=== PATIENT | male | born 1955 | race Caucasian/White ===

== ENCOUNTER 2020-01-07 23:51 | Inpatient (IN) | payer SELFPAY ==
--- NOTE | 2020-01-08 00:13 | ER Document Report ---
ED General - General Chief Complaint: Dizziness Stated Complaint: DIZZINESS Time Seen by Provider: 01/08/20 00:00 Notes: Patient is a 64-year-old male that comes to the emergency department for chief complaint of lightheadedness, feeling unsteady, and he states his checked his blood pressure at home and she told him it was elevated and she told him to come the emergency department. He comes by EMS. He denies headache, chest pain, shortness of breath, fever, although he does admit that he vomited twice earlier today. Admits to daily alcohol including today, he admits to alcohol dependence. He also admits to tobacco abuse. He denies recreational drugs, he denies any diagnosed medical history. He states that he took his 's nitroglycerin at home prior to arrival for his blood pressure but he specifically denies that he had chest pain. Patient does not have a primary care provider and has not been seen by one for a long time reportedly. - Related Data Allergies/Adverse Reactions: No Known Allergies Allergy (Unverified 01/08/20 03:26) Past Medical History - General Information source: Patient - Social History Smoking Status: Current Every Day Smoker Frequency of alcohol use: Heavy Drug Abuse: None Lives with: Spouse/Significant other Family History: Reviewed & Not Pertinent - Medical History Medical History: Negative - Immunizations Hx Diphtheria, Pertussis, Tetanus Vaccination: Yes Review of Systems - Review of Systems Constitutional: No symptoms reported EENT: No symptoms reported Cardiovascular: No symptoms reported Respiratory: No symptoms reported Gastrointestinal: No symptoms reported Genitourinary: No symptoms reported Male Genitourinary: No symptoms reported Musculoskeletal: No symptoms reported Skin: No symptoms reported Hematologic/Lymphatic: No symptoms reported Neurological/Psychological: See HPI Physical Exam - Vital signs Vitals: Temp Pulse Resp BP Pulse Ox 97.8 F 84 18 169/81 H 97 01/07/20 23:55 01/07/20 23:55 01/07/20 23:55 01/07/20 23:55 01/07/20 23:55 - Notes Notes: GENERAL: Alert, interactive, cooperative. Disheveled in appearance HEAD: Normocephalic, atraumatic. EYES: Pupils equal, round, and reactive to light. Extraocular movements intact. ENT: Oral mucosa moist, tongue midline. Oropharynx unremarkable. Airway patent. NECK: Full range of motion. Supple. Trachea midline. No lymphadenopathy. LUNGS: Clear to auscultation bilaterally, no wheezes, rales, or rhonchi. No respiratory distress. Non-tender chest wall. HEART: Regular rate and rhythm. No murmur ABDOMEN: Soft, non-tender. Non-distended. EXTREMITIES: Moves all 4 extremities spontaneously. No edema, normal radial and dorsalis pedis pulses bilaterally. No cyanosis. BACK: no cervical, thoracic, lumbar midline tenderness. No saddle anesthesia, normal distal neurovascular exam. Moves all extremities in full range of motion. NEUROLOGICAL: Alert and oriented to place, not completely oriented to events, repeats same questions multiple times normal speech. Slightly tremulous. Cranial nerves II through XII grossly intact. Strength 5/5 in all extremities. PSYCH: Normal affect, normal mood. SKIN: Warm, dry, normal turgor. No rashes or lesions noted. Course - Re-evaluation Re-evalutation: Patient is somewhat sluggish in his responses, he asks the same question multiple times, he is unsteady on his feet. Examination unremarkable otherwise except patient appears somewhat disheveled. Patient is hypertensive but his vital signs are unremarkable otherwise. CT of the head performed, no overt acute abnormality. CBC nonspecific, chemistry shows marked hyponatremia at 100.9, nonspecific otherwise. Troponin unremarkable. EKG shows probable J-point elevation. Chest x-ray unremarkable. Patient has been placed on seizure precautions, started slow sodium replacement with normal saline at 125 mL's per hour, discussed with both patient and , they state agreement with admission. Discussed with Dr. Harmon, recommends ICU admission. Discussed with Navneet Lemus PA-C consultant nurse for ICU admissions, evaluated the patient, patient accepted to ICU admission. - Vital Signs Vital signs: Temp Pulse Resp BP Pulse Ox 98.3 F 93 20 145/64 H 95 01/08/20 04:11 01/08/20 04:11 01/08/20 04:11 01/08/20 04:11 01/08/20 04:11 - Laboratory Result Diagrams: 01/08/20 04:40 01/08/20 04:40 Laboratory results interpreted by me: 01/08/20 01/08/20 00:24 02:09 WBC 13.5 H Seg Neuts % (Manual) 86 H Band Neutrophils % 1 L Lymphocytes % (Manual) 6 L Abs Neuts (Manual) 0.0 L Abs Lymphs (Manual) 0.0 L Abs Monocytes (Manual) 0.0 L Sodium 100.9 L* Chloride 66 L BUN 5 L Glucose 126 H Total Bilirubin 1.5 H - EKG Interpretation by Me Additional EKG results interpreted by me: EKG shows sinus rhythm at a rate of 87, QTc 457, normal axis, no T wave inversions in consecutive leads, there is what appears to be J-point elevation in V2 and V3. Otherwise unremarkable. Critical Care Note - Critical Care Note Total time excluding time spent on procedures (mins): 35 - Confusion, marked hyponatremia Comments: Please allow 35 minutes of critical care time for evaluation and management of patient with confusion, hypertension, marked hyponatremia. Interventions including multiple evaluations, treatment with slow sodium replacement, time spent discussing with patient, time spent discussing with patient's , time spent consulting and admitting to the ICU. Discharge - Discharge Clinical Impression: Hyponatremia, Unsteady gait, Confusion, Alcohol abuse Condition: Serious Disposition: ADMITTED INPATIENT Admitting Provider: Farooq (Sustainability Project Manager) Unit Admitted: ICU
[2020-01-08 00:53] LABS: ALBUMIN 4.3 g/dL (3.5-5.0); ALKALINE PHOSPHATASE 85 U/L (38-126); ANION GAP 13 (5-19); ASPARTATE AMINO TRANSFERASE 56 U/L (17-59); BILIRUBIN,DIRECT 0.3 mg/dL (0.0-0.4); BILIRUBIN,TOTAL 1.5 mg/dL (0.2-1.3); BLOOD UREA NITROGEN 5 mg/dL (7-20); CALCIUM 8.9 mg/dL (8.4-10.2); CARBON DIOXIDE 22 mmol/L (22-30); CHLORIDE 66 mmol/L (98-107); GLUCOSE 126 mg/dL (75-110); POTASSIUM 4.2 mmol/L (3.6-5.0); TOTAL PROTEIN 6.5 g/dL (6.3-8.2)
--- NOTE | 2020-01-08 01:08 | RADIOLOGY REPORT (SQ) ---
EXAM DESCRIPTION: CT HEAD WITHOUT IV CONTRAST COMPLETED DATE/TME: 01/08/2020 00:06 CLINICAL INDICATION: 64-year-old male with vomiting and questionable head injury. COMPARISON: 01/08/2020. TECHNIQUE: CT brain without contrast. This exam was performed according to our departmental dose optimization program which includes use of automated exposure control, adjustment of the mA and/or kV according to patient size and/or use of iterative reconstruction technique. FINDINGS: Examination findings are significantly limited by motion artifact, particularly at the level of the basal ganglia and bilateral ventricles. The possibility of trace hemorrhage or infarct cannot be excluded. The ventricles are mildly prominent, a finding which may reflect mild underlying volume loss. The sulci appear to be within normal limits. The chavarria-white matter differentiation is preserved. There is no mass effect, midline shift, intra- or extra-axial fluid collection/acute hemorrhage. The osseous structures are unremarkable. The paranasal sinuses and mastoid air cells are clear. IMPRESSION: 1. No gross acute intracranial abnormalities, however limited by motion artifact. Short-term interval follow-up evaluation may be considered when the patient is clinically able.
--- NOTE | 2020-01-08 01:21 | RADIOLOGY REPORT (SQ) ---
CLINICAL INDICATION: weakness. TECHNIQUE: A single portable AP view was obtained of the chest at 0039 hours. COMPARISON: None. FINDINGS: The cardiomediastinal silhouette is normal. The lungs are grossly clear. No evidence of effusion or pneumothorax. Chronic parenchymal lung change. Left lateral hemithorax incompletely imaged. IMPRESSION: No evidence of active intrathoracic disease.
[2020-01-08] MEDS ORDERED: NORMAL SALINE 1000 ML 1,000 ML IV PRN (01:24)
[2020-01-08 02:44] LABS: BAND NEUTROPHILS % (MANUAL) 1 % (3-5); BASOPHILS % (MANUAL) 0 % (0-2); EOSINOPHILS % (MANUAL) 0 % (0-6); LYMPHOCYTES % (MANUAL) 6 % (13-45); MONOCYTES % (MANUAL) 7 % (3-13); SEGMENTED NEUTROPHILS % (MAN) 86 % (42-78); TOTAL CELLS COUNTED 100
[2020-01-08 02:45] LABS: PLATELET COMMENT ADEQUATE
[2020-01-08 02:48] LABS: HEMOGLOBIN 16.4 g/dL (13.5-17.0); SCHISTOCYTES SLIGHT; WHITE BLOOD COUNT 13.5 10^3/uL (4.0-10.5)
[2020-01-08 03:02] LABS: PLATELET COUNT 189 10^3/uL (150-450)
[2020-01-08] MEDS ORDERED: HEPARIN SOD (PORCINE) 5,000 UNIT/ML 1 ML VIAL SUBCUT ONE (04:15)
[2020-01-08 04:47] LABS: HEMATOCRIT 44.3 % (37.9-51.0); MEAN CORPUSCULAR HGB CONC 36.1 g/dL (32.0-36.0); MEAN CORPUSCULAR VOLUME 94 fl (80-97); PLATELET COUNT 193 10^3/uL (150-450); RED BLOOD COUNT 4.71 10^6/uL (4.35-5.55); RED CELL DISTRIBUTION WIDTH 12.8 % (11.5-14.0); WHITE BLOOD COUNT 13.1 10^3/uL (4.0-10.5)
--- NOTE | 2020-01-08 04:49 | CRITICAL CARE ADMISSION REPORT ---
HPI Date:: 01/08/20 Time:: 04:35 Reason for ICU Reason:: Severe Hyponatremia with mental status changes Admission Date/Time & PCP: Admission Date/Time: 01/08/20 03:03 Primary Care Provider: EULA CAO MD HPI: 64-year-old gentleman with a history of alcohol abuse. Patient presented to the emergency room today feeling lightheaded with an elevated blood pressure taken at home. Upon arrival, the patient was found to have a sodium level of 100.9. CT was negative for any acute cerebral changes. He is being treated with normal saline at 125 mL/h. Upon evaluation, patient remains confused. He is being ad mitted to the intensive care unit for mental status changes in the presence of severe hyponatremia. History obtained from:: Patient, Emergency room Physician - Diagnosis/Plan (1) Alcohol abuse Is this a current diagnosis for this admission?: Yes Plan: Patient's last drink was earlier today. He is at risk of alcohol withdrawal syndrome while being treated for his hyponatremia. We will monitor closely for withdrawal symptoms and seizure-like activity. (2) Hyponatremia Is this a current diagnosis for this admission?: Yes Plan: Patient with no apparent seizure activity. CT scan of head is negative. Continue normal saline and follow-up sodium level. If level is beginning to improve, we will continue current treatment of normal saline. If no change in sodium level, we will consider starting hypertonic saline and recheck sodium levels regularly to avoid too rapid of a correction. Plan Summary: Overall, patient is in stable condition, however, is extremely low sodium levels put him at very high risk. If the patient's mental status improves and his sodium levels improve over the next 24 hours. He would be appropriate for transfer to the [facility] for further observation. If no change in his sodium levels this morning, we will start hypertonic saline with close sodium level monitorin g. Past Medical History Past Medical History: Patient is a poor historian and is unable to provide a an appropriate medical history at this time. Social/Family History - Social History Smoking Status: Current Every Day Smoker Frequency of Alcohol Use: Heavy Last Alcohol Use: 01/07/20 - Medication/Allergies Allergies/Adverse Reactions: No Known Allergies Allergy (Unverified 01/08/20 03:26) Review of Systems ROS unobtainable: Other - Patient's mental status seems to be somewhat altered although he does have some periods of lucency. He is unable to provide a complete review of systems, however he does state that he has no complaints. Physical Exam Vital Signs: Temp Pulse Resp BP Pulse Ox 98.1 F 84 24 H 194/93 H 97 01/08/20 03:24 01/07/20 23:55 01/08/20 03:01 01/08/20 03:01 01/08/20 03:01 Intake & Output 01/06/20 01/07/20 01/08/20 06:59 06:59 06:59 Weight 70.307 kg Weight/Height Weight 70.307 kg Height 5 ft 10 in General appearance: PRESENT: no acute distress, cooperative Head exam: PRESENT: atraumatic, normocephalic Eye exam: PRESENT: conjunctival injection, EOMI, PERRLA Ear exam: PRESENT: normal external ear exam Mouth exam: PRESENT: dry mucosa, neck supple Neck exam: PRESENT: full ROM. ABSENT: JVD, lymphadenopathy Respiratory exam: PRESENT: clear to auscultation jose l. ABSENT: accessory muscle use, rales, rhonchi, wheezes Cardiovascular exam: PRESENT: RRR, +S2 Pulses: PRESENT: normal carotid pulses GI/Abdominal exam: PRESENT: normal bowel sounds, soft. ABSENT: ascites, distended Neurological exam: PRESENT: oriented to person, oriented to place, oriented to time, oriented to situation, CN II-XII grossly intact Skin exam: PRESENT: normal color, other. ABSENT: skin tears Laboratory/Radiographs Laboratory Results: 01/08/20 02:09 01/08/20 00:24 01/08/20 01/08/20 01/08/20 00:24 00:24 02:09 WBC Cancelled 13.5 H RBC Cancelled Hgb Cancelled 16.4 Hct Cancelled MCV Cancelled MCH Cancelled MCHC Cancelled RDW Cancelled Plt Count Cancelled 189 Seg Neutrophils % Cancelled Not Reportable Sodium 100.9 L* Potassium 4.2 Chloride 66 L Carbon Dioxide 22 Anion Gap 13 BUN 5 L Creatinine 0.55 Est GFR ( Amer) > 60 Glucose 126 H Calcium 8.9 Total Bilirubin 1.5 H AST 56 Alkaline Phosphatase 85 Total Protein 6.5 Albumin 4.3 Lipase 60.5 01/08/20 00:24 Troponin I < 0.012 Impressions: Head CT 01/08/20 00:06 IMPRESSION: 1. No gross acute intracranial abnormalities, however limited by motion artifact. Short-term interval follow-up evaluation may be considered when the patient is clinically able. Chest X-Ray 01/08/20 00:07 IMPRESSION: No evidence of active intrathoracic disease. All labs, radiographs, diagnostic studies and EKGs were personally reviewed: Yes In addition, reports of radiographic and diagnostic studies were read: Yes Critical Time Critical Time (minutes): 70 -: The care of a critically ill patient is dynamic. This note represents a static moment in the admission process. Orders and treatments may be given simultaneously and urgently, and time is not territory representative of the treatment process. This patient requires Critical Care secondary to life threatening organ or limb dysfunction. Without Critical Care services, the patient is at risk for increased mortality and morbidity.
[2020-01-08 06:05] LABS: BLOOD UREA NITROGEN 7 mg/dL (7-20); CALCIUM 8.8 mg/dL (8.4-10.2); CARBON DIOXIDE 19 mmol/L (22-30); CHLORIDE 68 mmol/L (98-107); GLUCOSE 105 mg/dL (75-110); POTASSIUM 4.8 mmol/L (3.6-5.0)
[2020-01-08 06:07] LABS: ANION GAP 13 (5-19)
[2020-01-08] MEDS ORDERED: NICOTINE 21 MG/24 HR PATCH.TD24 TD ONE (06:15)
[2020-01-08] MEDS ORDERED: SODIUM CHLORIDE 3% 1,000 ML IV ONE (06:20)
[2020-01-08] MEDS ORDERED: SODIUM CHLORIDE 3% 500 ML IV ONE ×2 (06:24→21:45)
[2020-01-08] MEDS ORDERED: PHENOBARBITAL INJ 65 MG/ML VIAL IV ONE ×3 (07:30→11:45)
[2020-01-08] MEDS ORDERED: NORMAL SALINE IV ONE (08:00)
[2020-01-08] MEDS ORDERED: PHENOBARBITAL SODIUM IV ONE (08:00)
[2020-01-08] MEDS ORDERED: PHENOBARBITAL INJ 65 MG/ML VIAL IV PRN ×2 (08:07→10:00)
--- NOTE | 2020-01-08 09:10 | EKG REPORT ---
SEVERITY:- ABNORMAL ECG - SINUS RHYTHM BIATRIAL ABNORMALITIES MINIMAL ST ELEVATION, ANTERIOR LEADS : Confirmed by: Ivone Wong MD 08-Jan-2020 09:09:37
[2020-01-08 09:43] LABS: APPEARANCE,URINE CLEAR; BILIRUBIN,URINE NEGATIVE (NEGATIVE); COLOR,URINE YELLOW; GLUCOSE, URINE NEGATIVE (NEGATIVE); KETONES,URINE 20 mg/dL (NEGATIVE); LEUKOCYTE ESTERASE,URINE NEGATIVE (NEGATIVE); NITRITE,URINE NEGATIVE (NEGATIVE); PROTEIN,URINE NEGATIVE (NEGATIVE); URINE SPECIFIC GRAVITY 1.005
[2020-01-08] MEDS: FAMOTIDINE INJ/PF 20 MG/2 ML SDV IV SCH ×2 (10:47→22:04)
[2020-01-08] MEDS: MAGNESIUM SULFATE/D5W 1 GM/100 ML RTUPB IV SCH ×3 (10:47→13:05)
[2020-01-08] MEDS: PHENOBARBITAL INJ 65 MG/ML VIAL IV PRN ×3 (10:48→19:00)
[2020-01-08] MEDS: HEPARIN SOD (PORCINE) 5,000 UNIT/ML 1 ML VIAL SUBCUT SCH ×2 (13:35→22:03)
[2020-01-08 14:29] LABS: POTASSIUM 3.8 mmol/L (3.6-5.0)
[2020-01-08] MEDS ORDERED: PHENOBARBITAL INJ 65 MG/ML VIAL IV SCH (18:00)
[2020-01-08 21:22] LABS: POTASSIUM 4.6 mmol/L (3.6-5.0)
[2020-01-09 04:21] LABS: BLOOD UREA NITROGEN 8 mg/dL (7-20); CARBON DIOXIDE 23 mmol/L (22-30); CHLORIDE 87 mmol/L (98-107); GLUCOSE 80 mg/dL (75-110); POTASSIUM 4.3 mmol/L (3.6-5.0)
[2020-01-09 04:23] LABS: ANION GAP 9 (5-19)
[2020-01-09 04:36] LABS: HEMATOCRIT 48.8 % (37.9-51.0); HEMOGLOBIN 17.5 g/dL (13.5-17.0); MEAN CORPUSCULAR HEMOGLOBIN 34.2 pg (27.0-33.4); MEAN CORPUSCULAR HGB CONC 35.8 g/dL (32.0-36.0); MEAN CORPUSCULAR VOLUME 96 fl (80-97); PLATELET COUNT 162 10^3/uL (150-450); RED BLOOD COUNT 5.11 10^6/uL (4.35-5.55); RED CELL DISTRIBUTION WIDTH 13.1 % (11.5-14.0); WHITE BLOOD COUNT 7.2 10^3/uL (4.0-10.5)
[2020-01-09 05:11] LABS: PREALBUMIN 23.3 mg/dL (17.6-36.0)
[2020-01-09] MEDS: HEPARIN SOD (PORCINE) 5,000 UNIT/ML 1 ML VIAL SUBCUT SCH ×3 (05:24→21:48)
[2020-01-09] MEDS: FAMOTIDINE INJ/PF 20 MG/2 ML SDV IV SCH ×2 (09:00→21:48)
[2020-01-09] MEDS: NICOTINE 21 MG/24 HR PATCH.TD24 TD SCH (09:21)
[2020-01-09 10:22] LABS: POTASSIUM 5.2 mmol/L (3.6-5.0)
--- NOTE | 2020-01-09 10:26 | RADIOLOGY REPORT (SQ) ---
EXAM DESCRIPTION: CHEST SINGLE VIEW IMAGES COMPLETED DATE/TIME: 01/09/2020 5:38 am REASON FOR STUDY: cough COMPARISON: 01/08/2020 NUMBER OF VIEWS: One view. TECHNIQUE: Single frontal radiographic view of the chest acquired. LIMITATIONS: None. FINDINGS: LUNGS AND PLEURA: No opacities, masses or pneumothorax. No pleural effusion. Attenuated bl ood vessels and flattened ru-diaphragms. MEDIASTINUM AND HILAR STRUCTURES: No masses. Contour normal. HEART AND VASCULAR STRUCTURES: Heart normal in size. Normal vasculature. BONES: No acute findings. HARDWARE: None in the chest. OTHER: No other significant finding. IMPRESSION: COPD. NO ACUTE RADIOGRAPHIC FINDING IN THE CHEST. TECHNICAL DOCUMENTATION: JOB ID: [id number] 2010 [email or web address]- All Rights Reserved Reading location - IP/workstation name: [email or web address]
[2020-01-09] MEDS ORDERED: ACETAMINOPHEN 325 MG TABLET PO PRN (13:25)
[2020-01-09 17:10] LABS: ANION GAP 8 (5-19); BLOOD UREA NITROGEN 17 mg/dL (7-20); CALCIUM 9.3 mg/dL (8.4-10.2); CARBON DIOXIDE 19 mmol/L (22-30); CHLORIDE 94 mmol/L (98-107); GLUCOSE 72 mg/dL (75-110); POTASSIUM 4.9 mmol/L (3.6-5.0)
[2020-01-09 23:06] LABS: POTASSIUM 4.2 mmol/L (3.6-5.0)
[2020-01-09] MEDS ORDERED: SODIUM CHLORIDE 3% 500 ML IV ONE ×2 (23:34)
[2020-01-10 03:21] LABS: ANION GAP 7 (5-19); BLOOD UREA NITROGEN 13 mg/dL (7-20); CALCIUM 8.7 mg/dL (8.4-10.2); CARBON DIOXIDE 21 mmol/L (22-30); CHLORIDE 92 mmol/L (98-107); GLUCOSE 89 mg/dL (75-110); POTASSIUM 4.1 mmol/L (3.6-5.0)
[2020-01-10] MEDS: HEPARIN SOD (PORCINE) 5,000 UNIT/ML 1 ML VIAL SUBCUT SCH ×3 (05:49→22:34)
[2020-01-10] MEDS: FAMOTIDINE INJ/PF 20 MG/2 ML SDV IV SCH ×2 (09:41→22:34)
[2020-01-10] MEDS: NICOTINE 21 MG/24 HR PATCH.TD24 TD SCH (09:41)
[2020-01-10 10:39] LABS: POTASSIUM 4.4 mmol/L (3.6-5.0)
[2020-01-10] MEDS: IPRATROPIUM/ALBUTEROL 0.5-2.5 MG/3 ML AMPUL NEB PRN ×2 (16:01→22:06)
[2020-01-10] MEDS ORDERED: MORPHINE SULFATE 10 MG/ML INJ IV ONE (17:16)
--- NOTE | 2020-01-10 17:23 | PDOC CRITICAL CARE PROG REPORT ---
General Date:: 01/10/20 ICU Day:: 2 Hospital Day:: 2 Resuscitation Status: Full Code Events in the past 12 to 24 Hours:: Neurologically intact Review of systems relevant to events:: Neurological Reason for ICU Addmission:: Severe Hyponatremia with mental status changes, improved. - Medications: Medications reviewed and adjusted accordingly: Yes Vasopressors:: None Sedation:: None Physical Exam Vital Signs: Temp Pulse Resp BP Pulse Ox 98.0 F 109 H 24 H 158/76 H 97 01/10/20 12:00 01/10/20 16:01 01/10/20 16:01 01/10/20 14:00 01/10/20 16:01 Intake & Output 01/09/20 01/10/20 01/11/20 06:59 06:59 06:59 Intake Total 1300 720 Output Total 2960 440 125 Balance -1660 280 -125 Weight 68.1 kg 71.3 kg Weight/Height Weight 71.3 kg Height 5 ft 10 in General appearance: PRESENT: no acute distress, cooperative, thin Head exam: PRESENT: atraumatic, normocephalic Eye exam: PRESENT: conjunctiva pink, EOMI, PERRLA. ABSENT: scleral icterus Ear exam: PRESENT: normal external ear exam Mouth exam: PRESENT: moist, tongue midline Respiratory exam: PRESENT: clear to auscultation jose l. ABSENT: rales, rhonchi, wheezes Cardiovascular exam: PRESENT: RRR. ABSENT: diastolic murmur, rubs, systolic murmur GI/Abdominal exam: PRESENT: normal bowel sounds, soft. ABSENT: distended, guarding, mass, organolmegaly, rebound, tenderness Rectal exam: PRESENT: deferred Extremities exam: PRESENT: full ROM. ABSENT: calf tenderness, clubbing, pedal edema Musculoskeletal exam: PRESENT: normal inspection Neurological exam: PRESENT: alert, awake, oriented to person, oriented to place, oriented to time, oriented to situation, CN II-XII grossly intact. ABSENT: motor sensory deficit Psychiatric exam: PRESENT: appropriate affect, normal mood. ABSENT: homicidal ideation, suicidal ideation Skin exam: PRESENT: dry, intact, warm. ABSENT: cyanosis, rash Laboratory/Radiographs Laboratory Results: 01/09/20 03:13 01/10/20 09:50 01/09/20 01/09/20 01/10/20 16:19 21:59 02:57 Sodium 121.1 L 119.4 L* 120.2 L* Potassium 4.9 4.2 4.1 Chloride 94 L 92 L Carbon Dioxide 19 L 21 L Anion Gap 8 7 BUN 17 13 Creatinine 0.73 0.63 Est GFR ( Amer) > 60 > 60 Glucose 72 L 89 Calcium 9.3 8.7 01/10/20 09:50 Sodium 121.6 L Potassium 4.4 Chloride Carbon Dioxide Anion Gap BUN Creatinine Est GFR ( Amer) Glucose Calcium 01/08/20 08:14 Catheterized Urine Urine Culture - Final NO GROWTH 2 DAYS 01/08/20 01/09/20 00:24 03:13 Troponin I < 0.012 NT-Pro-B Natriuret Pep 208 H Impressions: Head CT 01/08/20 00:06 IMPRESSION: 1. No gross acute intracranial abnormalities, however limited by motion artifact. Short-term interval follow-up evaluation may be considered when the patient is clinically able. Chest X-Ray 01/09/20 05:00 IMPRESSION: COPD. NO ACUTE RADIOGRAPHIC FINDING IN THE CHEST. All labs, radiographs, diagnostic studies and EKGs were personally reviewed: Yes In addition, reports of radiographic and diagnostic studies were read: Yes Assessment and Plan - Diagnosis (1) Alcohol abuse Is this a current diagnosis for this admission?: Yes Plan: Keep on PRN phenobarbitol. No sign of WD. Pt feels a bit tired (2) Confusion Is this a current diagnosis for this admission?: Yes Plan: Resolved (3) Hyponatremia Is this a current diagnosis for this admission?: Yes Plan: Better at a NA of 121. If Na stays in mid 120s, stop 3% saline and down grade. Plan Summary: BMP for downgrade pending. Critical Time Critical Time (minutes): 35 Level of Care: ICU Anticipated discharge: Home Anticipated DC Timeframe: within 72 hours -: 1. The care of a critical patient is a dynamic process. This note is a small business sales representative synopsis but static in nature. The timeframe for treatments given in order is not necessarily the actual time these treatments may have been done. 2. This patient requires critical care secondary to ongoing requirements for therapy not offered or safe outside the critical care environment. Transfer to a lower level of care will result in altered life or limb morbidity and mortality. 3. Multidisciplinary rounds completed. 4. ABCDE bundle addressed.
[2020-01-10 18:04] LABS: ANION GAP 10 (5-19); BLOOD UREA NITROGEN 10 mg/dL (7-20); CALCIUM 9.3 mg/dL (8.4-10.2); CARBON DIOXIDE 25 mmol/L (22-30); CHLORIDE 88 mmol/L (98-107); GLUCOSE 86 mg/dL (75-110); POTASSIUM 4.4 mmol/L (3.6-5.0)
[2020-01-10 22:48] LABS: POTASSIUM 4.9 mmol/L (3.6-5.0)
[2020-01-11] MEDS ORDERED: SODIUM CHLORIDE 3% 500 ML IV ONE (00:27)
[2020-01-11 03:30] LABS: ANION GAP 7 (5-19); BLOOD UREA NITROGEN 9 mg/dL (7-20); CARBON DIOXIDE 23 mmol/L (22-30); CHLORIDE 93 mmol/L (98-107); GLUCOSE 92 mg/dL (75-110); POTASSIUM 4.5 mmol/L (3.6-5.0)
[2020-01-11] MEDS: HEPARIN SOD (PORCINE) 5,000 UNIT/ML 1 ML VIAL SUBCUT SCH ×3 (06:14→22:06)
[2020-01-11] MEDS: NICOTINE 21 MG/24 HR PATCH.TD24 TD SCH (10:10)
[2020-01-11] MEDS: FAMOTIDINE INJ/PF 20 MG/2 ML SDV IV SCH (10:23)
[2020-01-11 10:28] LABS: POTASSIUM 5.2 mmol/L (3.6-5.0)
[2020-01-11 10:37] LABS: ABSOLUTE EOSINOPHILS # (AUTO) 0.1 10^3/uL (0.0-0.6); ABSOLUTE LYMPHOCYTES (AUTO) 0.6 10^3/uL (0.5-4.7); ABSOLUTE MONOCYTES (AUTO) 0.8 10^3/uL (0.1-1.4); ABSOLUTE NEUT (AUTO) 5.2 10^3/uL (1.7-8.2); BASOPHILS % (AUTO) 0.5 % (0-2); EOSINOPHILS % (AUTO) 0.8 % (0-6); HEMATOCRIT 41.4 % (37.9-51.0); LYMPHOCYTES % (AUTO) 9.6 % (13-45); MEAN CORPUSCULAR HEMOGLOBIN 34.3 pg (27.0-33.4); MEAN CORPUSCULAR HGB CONC 35.2 g/dL (32.0-36.0); MEAN CORPUSCULAR VOLUME 98 fl (80-97); MONOCYTES % (AUTO) 11.4 % (3-13); PLATELET COUNT 148 10^3/uL (150-450); RED BLOOD COUNT 4.24 10^6/uL (4.35-5.55); RED CELL DISTRIBUTION WIDTH 13.5 % (11.5-14.0); SEGMENTED NEUTROPHILS % (AUTO) 77.7 % (42-78); TOTAL CELLS COUNTED % (AUTO) 100 %; WHITE BLOOD COUNT 6.7 10^3/uL (4.0-10.5)
[2020-01-11 10:38] LABS: HEMOGLOBIN 14.6 g/dL (13.5-17.0)
[2020-01-11] MEDS: IPRATROPIUM/ALBUTEROL 0.5-2.5 MG/3 ML AMPUL NEB PRN (10:54)
--- NOTE | 2020-01-11 12:02 | PDOC CRITICAL CARE PROG REPORT ---
General Date:: 01/11/20 ICU Day:: 3 Hospital Day:: 3 Resuscitation Status: Full Code Events in the past 12 to 24 Hours:: Na beginning to rise. Review of systems relevant to events:: Neurological. Reason for ICU Addmission:: Severe Hyponatremia with mental status changes, improved. - Medications: Medications reviewed and adjusted accordingly: Yes Vasopressors:: None Sedation:: None Physical Exam Vital Signs: Temp Pulse Resp BP Pulse Ox 98.7 F 111 H 24 H 182/86 H 100 01/11/20 10:00 01/11/20 10:55 01/11/20 11:00 01/11/20 10:55 01/11/20 11:00 Intake & Output 01/10/20 01/11/20 01/12/20 06:59 06:59 06:59 Intake Total 720 Output Total 440 550 525 Balance 280 -550 -525 Weight 71.3 kg 71.4 kg Weight/Height Weight 71.4 kg Height 5 ft 10 in General appearance: PRESENT: no acute distress, cooperative, thin Head exam: PRESENT: atraumatic, normocephalic Eye exam: PRESENT: conjunctiva pink, EOMI, PERRLA. ABSENT: scleral icterus Ear exam: PRESENT: normal external ear exam Mouth exam: PRESENT: moist, tongue midline Respiratory exam: PRESENT: clear to auscultation jose l. ABSENT: rales, rhonchi, wheezes Cardiovascular exam: PRESENT: tachycardia GI/Abdominal exam: PRESENT: normal bowel sounds, soft. ABSENT: distended, guarding, mass, organolmegaly, rebound, tenderness Rectal exam: PRESENT: deferred Extremities exam: PRESENT: full ROM. ABSENT: calf tenderness, clubbing, pedal edema Neurological exam: PRESENT: alert, awake, oriented to person, oriented to place, oriented to time, oriented to situation, CN II-XII grossly intact. ABSENT: motor sensory deficit Psychiatric exam: PRESENT: appropriate affect, normal mood. ABSENT: homicidal ideation, suicidal ideation Skin exam: PRESENT: dry, intact, warm. ABSENT: cyanosis, rash Laboratory/Radiographs Laboratory Results: 01/11/20 03:00 01/11/20 09:28 01/10/20 01/10/20 01/10/20 17:15 17:15 22:08 WBC RBC Hgb Hct MCV MCH MCHC RDW Plt Count Seg Neutrophils % Sodium Cancelled 122.5 L 122.0 L Potassium Cancelled 4.4 4.9 Chloride 88 L Carbon Dioxide 25 Anion Gap 10 BUN 10 Creatinine 0.61 Est GFR ( Amer) > 60 Glucose 86 Calcium 9.3 01/11/20 01/11/20 01/11/20 03:00 03:00 09:28 WBC 6.7 RBC 4.24 L Hgb 14.6 D Hct 41.4 MCV 98 H MCH 34.3 H MCHC 35.2 RDW 13.5 Plt Count 148 L Seg Neutrophils % 77.7 Sodium 123.2 L 124.2 L Potassium 4.5 5.2 H Chloride 93 L Carbon Dioxide 23 Anion Gap 7 BUN 9 Creatinine 0.62 Est GFR ( Amer) > 60 Glucose 92 Calcium 9.0 01/08/20 08:14 Catheterized Urine Urine Culture - Final NO GROWTH 2 DAYS 01/08/20 01/09/20 00:24 03:13 Troponin I < 0.012 NT-Pro-B Natriuret Pep 208 H Impressions: Head CT 01/08/20 00:06 IMPRESSION: 1. No gross acute intracranial abnormalities, however limited by motion artifact. Short-term interval follow-up evaluation may be considered when the patient is clinically able. Chest X-Ray 01/09/20 05:00 IMPRESSION: COPD. NO ACUTE RADIOGRAPHIC FINDING IN THE CHEST. All labs, radiographs, diagnostic studies and EKGs were personally reviewed: Yes In addition, reports of radiographic and diagnostic studies were read: Yes Assessment and Plan - Diagnosis (1) Hyponatremia Is this a current diagnosis for this admission?: Yes Plan: Level is 124. #5 NS off. BMP at 2 and if stable downgrade. (2) Alcohol abuse Is this a current diagnosis for this admission?: Yes Plan: No signs of WD and no use of phenobarbitol in 24 hours. (3) Confusion Is this a current diagnosis for this admission?: Yes Plan: Resolved Plan Summary: Hope to downgrade later today. Critical Time Critical Time (minutes): 35 Level of Care: ICU Anticipated discharge: Home Anticipated DC Timeframe: within 48 hours -: 1. The care of a critical patient is a dynamic process. This note is a pharmacy sales representative synopsis but static in nature. The timeframe for treatments given in order is not necessarily the actual time these treatments may have been done. 2. This patient requires critical care secondary to ongoing requirements for therapy not offered or safe outside the critical care environment. Transfer to a lower level of care will result in altered life or limb morbidity and mortality. 3. Multidisciplinary rounds completed. 4. ABCDE bundle addressed.
[2020-01-11] MEDS ORDERED: PHENOBARBITAL INJ 65 MG/ML VIAL IV PRN (12:03)
[2020-01-11] MEDS ORDERED: LORAZEPAM 1 MG TABLET PO PRN (12:50)
[2020-01-11] MEDS: METOPROLOL SUCCINATE 25 MG TAB.SR.24H PO SCH ×2 (13:48→22:05)
[2020-01-11 15:13] LABS: ANION GAP 9 (5-19); BLOOD UREA NITROGEN 13 mg/dL (7-20); CALCIUM 9.7 mg/dL (8.4-10.2); CARBON DIOXIDE 23 mmol/L (22-30); CHLORIDE 91 mmol/L (98-107); GLUCOSE 111 mg/dL (75-110); POTASSIUM 4.5 mmol/L (3.6-5.0)
[2020-01-11] MEDS: SODIUM CHLORIDE 3% 500 ML IV PRN ×2 (16:30→22:06)
[2020-01-11 21:38] LABS: POTASSIUM 4.4 mmol/L (3.6-5.0)
[2020-01-12 04:36] LABS: ANION GAP 8 (5-19); BLOOD UREA NITROGEN 12 mg/dL (7-20); CALCIUM 8.8 mg/dL (8.4-10.2); CARBON DIOXIDE 21 mmol/L (22-30); CHLORIDE 93 mmol/L (98-107); GLUCOSE 102 mg/dL (75-110); POTASSIUM 4.6 mmol/L (3.6-5.0)
[2020-01-12] MEDS: IPRATROPIUM/ALBUTEROL 0.5-2.5 MG/3 ML AMPUL NEB PRN (05:54)
[2020-01-12] MEDS: HEPARIN SOD (PORCINE) 5,000 UNIT/ML 1 ML VIAL SUBCUT SCH (06:17)
[2020-01-12] MEDS: SODIUM CHLORIDE 3% 500 ML IV PRN ×2 (06:17→11:21)
[2020-01-12] MEDS: METOPROLOL SUCCINATE 25 MG TAB.SR.24H PO SCH (09:36)
[2020-01-12] MEDS: NICOTINE 21 MG/24 HR PATCH.TD24 TD SCH (09:36)
[2020-01-12] MEDS ORDERED: SODIUM CHLORIDE 1 GM TABLET PO SCH (10:00)
[2020-01-12 10:50] LABS: POTASSIUM 4.4 mmol/L (3.6-5.0)
[2020-01-12 12:28] VITALS: BP 152/55
--- NOTE | 2020-01-12 13:53 | Left Against Medical Advice ---
Against Medical Advice Admission Date/Time: 01/08/20 03:03 Primary Care Provider: EULA CAO MD Date of Patient Emigration: 01/12/20 - Diagnosis: (1) Hyponatremia Is this a current diagnosis for this admission?: Yes (2) Alcohol abuse Is this a current diagnosis for this admission?: Yes (3) Confusion Is this a current diagnosis for this admission?: Yes - Summary: Summary: Please see Admission and Progress Notes as well. VERNON MONTGOMERY is a 64 M, who LEFT AGAINST MEDICAL ADVICE. The Patient was admitted on 01/08/20 03:03. This patient has been treated for hyponatremia for several days. His level was 100 and his only symptom was confusion which has resolved for several days. Despite 3% NaCl, his na level is only 124. I'm sure there is a component of chronicity. He is a heavy drinker but has shown no signs of WD. He has had no symptoms for 2 days. He is alert, awake, fully oriented in the presence of his and wants to sign out AMA. He does not have a primary physician but says he will find one on his own. I have counseled but him and hios of the dangers especially of readmission both today and yesterday, yet he insists on leaving. To that end we will conceed as he is of sound mind. I have included i week of salt tablets 1 gm BID for a week and a repeat BMP but he has no insurance and I am not sure if he will comply.
== END 2020-01-12 13:50 | disposition left against medical advice (07) | DRG 641 ==
LOC: ER 23:51 → EH 01-08 03:03 → ICU 01-08 03:51
PROVIDERS: ADMIT Internal Medicine Critical Care Medicine; ATTEND Internal Medicine Critical Care Medicine
DX: E87.1 Hypo-osmolality and hyponatremia (principal); F10.10 Alcohol abuse, uncomplicated; I10 Essential (primary) hypertension; R26.81 Unsteadiness on feet; F17.200 Nicotine dependence, unspecified, uncomplicated; R41.0 Disorientation, unspecified; Z59.7 Insufficient social insurance and welfare support
CPT/HCPCS: 36415; 70450; 71045; 80048; 80053; 80307; 81001; 82533; 83690; 83735; 83880; 84100; 84132; 84134; 84295; 84484; 85025; 85027; 87086; 87205; 93005; 93010; 94640; 96360; 99238; 99285; 99291; J1644; J2560; J3475; J3490; J7030; S0028